=== PATIENT | male | born 1940 | race Caucasian/White ===

== ENCOUNTER 2017-04-20 15:45 | Emergency (ER) | payer MEDICARE, BC ==
[2017-04-20 16:08] VITALS: BP 132/68
[2017-04-20] MEDS ORDERED: MITIGARE0.6 MG PO (16:21)
[2017-04-20] MEDS ORDERED: BACTRIM DS1 TAB PO (16:21)
[2017-04-20] MEDS ORDERED: CEPHALEXIN500 MG PO (16:21)
== END 2017-04-20 16:54 | disposition home or self-care (01) ==
LOC: ED 15:45
DX: M79.89 Other specified soft tissue disorders (principal); L53.9 Erythematous condition, unspecified; M79.674 Pain in right toe(s); E78.5 Hyperlipidemia, unspecified; E11.9 Type 2 diabetes mellitus without complications